=== PATIENT | male | born 1955 | race Caucasian/White ===

== ENCOUNTER 2020-05-05 12:47 | Emergency (ER) | payer MEDICARE ==
[~2020-05-05] VITALS: Ht 177.8 cm; Wt 81.0 kg
[2020-05-05] MEDS ORDERED: IBUPROFEN 600MG TABLET PO STA (13:08)
[2020-05-05 15:24] VITALS: BP 139/83
== END 2020-05-05 15:25 | disposition home or self-care (01) ==
LOC: ER 13:25
DX: S92.311A Displaced fracture of first metatarsal bone, right foot, initial encounter for closed fracture (principal); J45.909 Unspecified asthma, uncomplicated; V29.9XXA Motorcycle rider (driver) (passenger) injured in unspecified traffic accident, initial encounter; Y93.89 Activity, other specified; Y92.89 Other specified places as the place of occurrence of the external cause; Y99.8 Other external cause status
CPT/HCPCS: 29515; 73630; 99283